=== PATIENT | female | born 1975 | race Caucasian/White ===

== ENCOUNTER → 2021-01-17 | Outpatient (CLI) | payer BC | LOC: LAB 09:36 | DX: Z01.812 Encounter for preprocedural laboratory examination (principal); Z20.822 Contact with and (suspected) exposure to COVID-19 ==

== ENCOUNTER → 2021-01-23 | Day surgery (SDC) | payer BC | END | disposition home or self-care (01) | LOC: MSO 08:14 | DX: H26.8 Other specified cataract (principal); H04.121 Dry eye syndrome of right lacrimal gland; Q87.40 Marfan syndrome, unspecified; Z88.1 Allergy status to other antibiotic agents | CPT/HCPCS: 00142; J0171; J2250; J3010; V2632 ==

== ENCOUNTER → 2024-01-08 | Outpatient (CLI) | payer BC ==
[~2024-01-08] MED LIST: Iohexol 300 - 100 ML VIAL IV ONE
== END ==
LOC: RAD 12:27
DX: Q87.40 Marfan syndrome, unspecified (principal)
CPT/HCPCS: Q9967